=== PATIENT | female | born 1990 | race Two or more races ===

== ENCOUNTER 2016-06-29 17:09 | Emergency (ER) | payer SELFPAY ==
[~2016-06-29] VITALS: Ht 165.1 cm; Wt 63.5 kg
[~2016-06-29 17:09] MED LIST: AZIT250T PO; FLUT9.9S NS
[2016-06-29 17:56] VITALS: BP 118/73
[2016-06-29 18:24] LABS: OBC FLU VALID
[2016-06-29] MEDS ORDERED: AMOX500C PO (18:32)
--- NOTE | 2016-06-29 18:32 | PHYS DOC ---
Past Medical History Past Medical History: No Pertinent History Past Surgical History: Cholecystectomy Alcohol Use: None Drug Use: None Adult General Chief Complaint Chief Complaint: COUGH HPI HPI Patient is a 25 year old female presents emergency department stating that she' s had a cough congestion for the last 2 weeks. She states initially she was running fevers although apparently she has not been having any. She does state that she coughs enough that she felt like to vomit. Patient denies vomiting diarrhea. Patient denies taking any medication [id number]. Review of Systems Review of Systems Constitutional: Denies fever or chills [] Eyes: Denies change in visual acuity, redness, or eye pain [] HENT: nasal congestion and sore throat [] Respiratory: cough denies shortness of breath [] Cardiovascular: No additional information not addressed in HPI [] GI: Denies abdominal pain, nausea, vomiting, bloody stools or diarrhea [] : Denies dysuria or hematuria [] Musculoskeletal: Denies back pain or joint pain [] Integument: Denies rash or skin lesions [] Neurologic: Denies headache, focal weakness or sensory changes [] Allergies Allergies Allergies Coded Allergies Type Severity Reaction Last Updated Verified No Known Drug Allergies 05/30/15 No Physical Exam Physical Exam Constitutional: Well developed, well nourished, no acute distress, non-toxic appearance. [] HENT: Normocephalic, atraumatic, bilateral external ears normal, oropharynx moist, no oral exudates, nose normal. Bilateral tympanic membranes appear to be normal. Patient with postnasal drip that appears to be clear. No erythematous or exudate noted. Eyes: PERRLA, EOMI, conjunctiva normal, no discharge. [] Neck: Normal range of motion, no tenderness, supple, no stridor. [] Cardiovascular:Heart rate regular rhythm, no murmur [] Lungs & Thorax: Bilateral breath sounds clear to auscultation [] Skin: Warm, dry, no erythema, no rash. [] Back: No tenderness Extremities: No tenderness, no cyanosis, no clubbing, ROM intact, no edema. [] Neurologic: Alert and oriented X 3, normal motor function, normal sensory function, no focal deficits noted. [] Psychologic: Affect normal, judgement normal, mood normal. [] Current Patient Data Vital Signs Vital Signs Date Time Temp Pulse Resp B/P Pulse Ox O2 Delivery O2 Flow Rate FiO2 06/29/16 17:56 98.4 88 18 98 Room Air 98.4 Lab Values Laboratory Tests Test 06/29/16 17:20 Influenza Type A Antigen Negative (NEGATIVE) Influenza Type B Antigen Negative (NEGATIVE) EKG EKG [] Radiology/Procedures Radiology/Procedures [] Course & Med Decision Making Course & Med Decision Making Pertinent Labs and Imaging studies reviewed. (See chart for details) Rapid strep and influenza was negative. Patient will be treated for an upper respiratory infection. She'll be placed on amoxicillin 1 tablet twice day for the next 10 days recommended cough medication [id number]. Patient agrees with discharge instructions treatment regimens and follow-up recommendations. Signs and symptoms to return back to emergency department as been provided. [] Dragon Disclaimer Dragon Disclaimer This electronic medical record was generated, in whole or in part, using a voice recognition dictation system. Departure Departure Impression: Primary Impression: URI (upper respiratory infection) Disposition: HOME, SELF-CARE Condition: STABLE Referrals: NO PCP (PCP) Patient Instructions: Upper Respiratory Infection, Adult, [id number] Additional Instructions: Activity as tolerated. Tylenol or ibuprofen for fever chills or generalized body aches and discomfort. Medication as prescribed. Drink plenty of fluids. Rokc-esw-[id number] cough medications such as Mucinex DM. Follow-up primary care physician next 3-5 days. Return back to emergency prior signs symptoms of become worse. Scripts Amoxicillin 500 Mg Capsule1 Cap PO BID #20 CAP Prov:YENNY BURNS NP 06/29/16 YENNY BURNS NP Jun 29, 2016 18:32
[2016-06-30 07:02] LABS: NEGATIVE OBC STREP NEG; POSITIVE OBC STREP POS
== END 2016-06-29 18:42 | disposition home or self-care (01) ==
LOC: ER 17:09
DX: J06.9 Acute upper respiratory infection, unspecified (principal)
CPT/HCPCS: 87070; 87804; 87880; 99284

== ENCOUNTER 2018-11-28 22:24 | Emergency (ER) | payer SELFPAY ==
[~2018-11-28] VITALS: Ht 165.1 cm; Wt 63.5 kg
[~2018-11-28 22:24] MED LIST changes: +AMOX500C PO
[2018-11-28 22:50] VITALS: BP 128/66
--- NOTE | 2018-11-28 23:31 | PHYS DOC ---
Past Medical History Past Medical History: No Pertinent History Past Surgical History: Cholecystectomy Alcohol Use: None Drug Use: Marijuana Adult General Chief Complaint Chief Complaint: VAGINAL PROBLEM HPI HPI Patient is a 27 year old female who was presented to ER today for evaluation of painful vaginal rash for about 2 days. Patient denies any fever, no pelvic pain, no abdominal pain. Patient is sexually active. Review of Systems Review of Systems Constitutional: Denies fever or chills [] Eyes: Denies change in visual acuity, redness, or eye pain [] HENT: Denies nasal congestion or sore throat [] Respiratory: Denies cough or shortness of breath [] Cardiovascular: No additional information not addressed in HPI [] GI: Denies abdominal pain, nausea, vomiting, bloody stools or diarrhea [] : painful vaginal rash, pain with urination. Musculoskeletal: Denies back pain or joint pain [] Integument: Denies rash or skin lesions [] Neurologic: Denies headache, focal weakness or sensory changes [] Endocrine: Denies polyuria or polydipsia [] All other systems were reviewed and found to be within normal limits, except as documented in this note. Current Medications Current Medications Current Medications Medications (Trade) Dose Ordered Sig/Carmela Start Time Stop Time Status Last Admin Dose Admin Acyclovir (Zovirax) 400 mg 1X ONCE 11/29/18 00:00 11/29/18 00:01 DC 11/28/18 23:48 400 MG Azithromycin (Zithromax) 1,000 mg 1X ONCE 11/29/18 00:00 11/29/18 00:01 DC 11/28/18 23:48 1,000 MG Ceftriaxone Sodium (Rocephin Im) 250 mg 1X ONCE 11/29/18 00:00 11/29/18 00:01 DC 11/28/18 23:47 250 MG Fluconazole (Diflucan) 150 mg 1X ONCE 11/29/18 00:00 11/29/18 00:01 DC 11/28/18 23:47 150 MG Allergies Allergies Allergies Coded Allergies Type Severity Reaction Last Updated Verified No Known Drug Allergies 05/30/15 No Physical Exam Physical Exam Constitutional: Well developed, well nourished, no acute distress, non-toxic appearance. [] HENT: Normocephalic, atraumatic, bilateral external ears normal, oropharynx moist, no oral exudates, nose normal. [] Eyes: PERRLA, EOMI, conjunctiva normal, no discharge. [] Neck: Normal range of motion, no tenderness, supple, no stridor. [] Cardiovascular:Heart rate regular rhythm, no murmur [] Lungs & Thorax: Bilateral breath sounds clear to auscultation [] Abdomen: Bowel sounds normal, soft, no tenderness, no masses, no pulsatile masses. [] Skin: Warm, dry, no erythema, no rash. [] Back: No tenderness, no CVA tenderness. [] Extremities: No tenderness, no cyanosis, no clubbing, ROM intact, no edema. [] Neurologic: Alert and oriented X 3, normal motor function, normal sensory function, no focal deficits noted. [] Psychologic: Affect normal, judgement normal, mood normal. Pelvic exam: with RN present, there area numerous crusted herpetic lesions on external vaginal area. cloudy vaginal discharge, no adnexa tenderness. Current Patient Data Vital Signs Vital Signs Date Time Temp Pulse Resp B/P (MAP) Pulse Ox O2 Delivery O2 Flow Rate FiO2 11/28/18 22:50 98.6 87 16 128/66 (86) 98 Room Air 98.6 Lab Values Laboratory Tests Test 11/28/18 23:45 11/28/18 23:46 Urine Collection Type Unknown Urine Color Yellow Urine Clarity Cloudy Urine pH 6.5 Urine Specific Rewey 1.015 Urine Protein Negative mg/dL (NEG-TRACE) Urine Glucose (UA) Negative mg/dL (NEG) Urine Ketones (Stick) Negative mg/dL (NEG) Urine Blood Moderate (NEG) Urine Nitrite Negative (NEG) Urine Bilirubin Negative (NEG) Urine Urobilinogen Dipstick 1.0 mg/dL (0.2 mg/dL) Urine Leukocyte Esterase Large (NEG) Urine RBC Occ /HPF (0-2) Urine WBC 5-10 /HPF (0-4) Urine Squamous Epithelial Cells Many /LPF Urine Bacteria Moderate /HPF (0-FEW) Urine Mucus Mod /LPF POC Urine HCG, Qualitative Hcg negative (Negative) Microbiology 11/28/18 Wet Prep - Final, Complete EKG EKG [] Radiology/Procedures Radiology/Procedures [] Course & Med Decision Making Course & Med Decision Making Pertinent Labs and Imaging studies reviewed. (See chart for details) [] Dragon Disclaimer Dragon Disclaimer This electronic medical record was generated, in whole or in part, using a voice recognition dictation system. Departure Departure Impression: Primary Impression: Herpes genitalis in women Disposition: HOME, SELF-CARE Condition: STABLE Referrals: NO PCP (PCP) follow up with your doctor on Sunday for reevaluation. Patient Instructions: Genital Herpes Scripts Tramadol Hcl (TRAMADOL HCL) 50 Mg Tablet 50 MG PO Q6HRS PRN for PAIN, #15 TAB Prov: ISMA STEVENSON DO 11/29/18 Acyclovir (ACYCLOVIR) 400 Mg Tablet 1 TAB PO TID for 10 Days, #30 TAB Prov: ISMA STEVENSON DO 11/29/18 ISMA STEVENSON DO Nov 28, 2018 23:31
[2018-11-28 23:50] LABS: BILIRUBIN,URINE NEGATIVE (NEG); CLARITY,URINE CLOUDY; COLOR,URINE YELLOW; NITRITE,URINE NEGATIVE (NEG); PH,URINE 6.5; PROTEIN,URINE NEGATIVE (NEG-TRACE)
[2018-11-29] MEDS ORDERED: FLUCONAZOLE 100 MG TABLET. PO ONE
[2018-11-29] MEDS ORDERED: AZITHROMYCIN 250 MG TABLET. PO ONE
[2018-11-29] MEDS ORDERED: cefTRIAXone IM 250 MG VIAL IM ONE
[2018-11-29] MEDS ORDERED: ACYCLOVIR 200 MG CAPSULE. PO ONE
[2018-11-29 00:06] LABS: BACTERIA,URINE MODERATE /HPF (0-FEW); RBC,URINE OCC /HPF (0-2)
[2018-11-29] MEDS ORDERED: TRAM50TA PO (00:08)
[2018-11-29] MEDS ORDERED: ACYC400T PO (00:08)
[2018-11-29 00:09] LABS: SQUAMOUS EPITHELIAL CELL,UR MANY /LPF
== END 2018-11-29 00:20 | disposition home or self-care (01) ==
LOC: ER 22:24
DX: B00.9 Herpesviral infection, unspecified (principal); R30.0 Dysuria; Z90.49 Acquired absence of other specified parts of digestive tract
CPT/HCPCS: 81001; 81025; 87086; 87491; 87591; 96372; 99284; J0696; Q0111; Q0144

== ENCOUNTER 2019-04-08 20:15 | Emergency (ER) | payer SELFPAY ==
[~2019-04-08] VITALS: Ht 165.1 cm; Wt 63.5 kg
[~2019-04-08 20:15] MED LIST changes: +ACYC400T PO; +TRAM50TA PO
[2019-04-08] MEDS ORDERED: IV NORMAL SALINE 1000ML BAG 1,000 ML IV SCH (20:29)
[2019-04-08 20:43] LABS: BILIRUBIN,URINE NEGATIVE (NEG); CLARITY,URINE CLEAR; COLOR,URINE YELLOW; NITRITE,URINE NEGATIVE (NEG); PH,URINE 6.5; PROTEIN,URINE NEGATIVE (NEG-TRACE); UROBILINOGEN,URINE 0.2 mg/dL (0.2 mg/dL)
[2019-04-08 20:49] LABS: BACTERIA,URINE MODERATE /HPF (0-FEW); RBC,URINE OCC /HPF (0-2); SQUAMOUS EPITHELIAL CELL,UR MANY /LPF
--- NOTE | 2019-04-08 21:14 | PHYS DOC ---
Past Medical History Past Medical History: No Pertinent History Past Surgical History: Cholecystectomy Alcohol Use: Occasionally Drug Use: Marijuana Adult General Chief Complaint Chief Complaint: ABDOMINAL PAIN IN HPI HPI 28-year-old female presents to the emergency department with complaints of abdominal pain. Patient's last menstrual period was 02/05/2019. Patient had positive urine test. She was seen at outpatient center today with complaints of abdominal cramping. She denies any vaginal discharge or vaginal bleeding. She states that she had an ultrasound that showed no evidence of intrauterine and could not rule out ectopic . Subsequent patient was sent to this facility for further evaluation. Review of Systems Review of Systems Constitutional: Denies fever or chills [] Eyes: Denies change in visual acuity, redness, or eye pain [] HENT: Denies nasal congestion or sore throat [] Respiratory: Denies cough or shortness of breath [] Cardiovascular: No additional information not addressed in HPI [] GI: + abdominal pain, no nausea, vomiting, bloody stools or diarrhea [] : Denies dysuria or hematuria, no vaginal bleeding [] Musculoskeletal: Denies back pain or joint pain [] Integument: Denies rash or skin lesions [] Neurologic: Denies headache, focal weakness or sensory changes [] All other systems were reviewed and found to be within normal limits, except as documented in this note. Current Medications Current Medications Current Medications Medications (Trade) Dose Ordered Sig/[facility] Start Time Stop Time Status Last Admin Dose Admin Sodium Chloride 1,000 ml @ 1,000 mls/hr Q1H 04/08/19 20:29 04/08/19 21:28 DC 04/08/19 21:03 1,000 MLS/HR Allergies Allergies Allergies Coded Allergies Type Severity Reaction Last Updated Verified No Known Drug Allergies 05/30/15 No Physical Exam Physical Exam Constitutional: Well developed, well nourished, no acute distress, non-toxic appearance. [] HENT: Normocephalic, atraumatic, bilateral external ears normal, oropharynx moist, no oral exudates, nose normal. [] Eyes: PERRLA, EOMI, conjunctiva normal, no discharge. [] Cardiovascular:Heart rate regular rhythm, no murmur [] Lungs & Thorax: Bilateral breath sounds clear to auscultation [] Abdomen: Bowel sounds normal, soft, no tenderness, no masses, no pulsatile masses. [] Skin: Warm, dry, no erythema, no rash. [] Back: No tenderness, no CVA tenderness. [] Extremities: No tenderness, no edema. [] Neurologic: Alert and oriented X 3, no focal deficits noted. [] Psychologic: Affect normal, judgement normal, mood normal. [] Current Patient Data Vital Signs Vital Signs Date Time Temp Pulse Resp B/P (MAP) Pulse Ox O2 Delivery O2 Flow Rate FiO2 04/08/19 21:40 84 18 126/74 (91) 100 Room Air 04/08/19 20:23 98.9 98.9 Lab Values Laboratory Tests Test 04/08/19 20:30 04/08/19 20:34 04/08/19 20:45 Urine Collection Type Unknown Urine Color Yellow Urine Clarity Clear Urine pH 6.5 Urine Specific Lucinda 1.015 Urine Protein Negative mg/dL (NEG-TRACE) Urine Glucose (UA) Negative mg/dL (NEG) Urine Ketones (Stick) Negative mg/dL (NEG) Urine Blood Small (NEG) Urine Nitrite Negative (NEG) Urine Bilirubin Negative (NEG) Urine Urobilinogen Dipstick 0.2 mg/dL (0.2 mg/dL) Urine Leukocyte Esterase Trace (NEG) Urine RBC Occ /HPF (0-2) Urine WBC 5-10 /HPF (0-4) Urine Squamous Epithelial Cells Many /LPF Urine Bacteria Moderate /HPF (0-FEW) Urine Mucus Marked /LPF POC Urine HCG, Qualitative Hcg positive (Negative) White Blood Count 7.1 x10^3/uL (4.0-11.0) Red Blood Count 4.14 x10^6/uL (3.50-5.40) Hemoglobin 12.9 g/dL (12.0-15.5) Hematocrit 37.7 % (36.0-47.0) Mean Corpuscular Volume 91 fL (79-100) Mean Corpuscular Hemoglobin 31 pg (25-35) Mean Corpuscular Hemoglobin Concent 34 g/dL (31-37) Red Cell Distribution Width 13.3 % (11.5-14.5) Platelet Count 230 x10^3/uL (140-400) Neutrophils (%) (Auto) 55 % (31-73) Lymphocytes (%) (Auto) 35 % (24-48) Monocytes (%) (Auto) 8 % (0-9) Eosinophils (%) (Auto) 1 % (0-3) Basophils (%) (Auto) 1 % (0-3) Neutrophils # (Auto) 3.9 x10^3/uL (1.8-7.7) Lymphocytes # (Auto) 2.5 x10^3/uL (1.0-4.8) Monocytes # (Auto) 0.6 x10^3/uL (0.0-1.1) Eosinophils # (Auto) 0.1 x10^3/uL (0.0-0.7) Basophils # (Auto) 0.0 x10^3/uL (0.0-0.2) Prothrombin Time 13.2 SEC (11.7-14.0) Prothrombin Time INR 1.0 (0.8-1.1) Maternal Serum HCG Beta Subunit 3956 mIU/mL (0-5) H Sodium Level 136 mmol/L (136-145) Potassium Level 3.4 mmol/L (3.5-5.1) L Chloride Level 102 mmol/L (98-107) Carbon Dioxide Level 26 mmol/L (21-32) Anion Gap 8 (6-14) Blood Urea Nitrogen 10 mg/dL (7-20) Creatinine 0.8 mg/dL (0.6-1.0) Estimated GFR (Cockcroft-Gault) 86.7 BUN/Creatinine Ratio 13 (6-20) Glucose Level 89 mg/dL (70-99) Calcium Level 8.8 mg/dL (8.5-10.1) Total Bilirubin 0.2 mg/dL (0.2-1.0) Aspartate Amino Transferase (AST) 8 U/L (15-37) L Alanine Aminotransferase (ALT) 19 U/L (14-59) Alkaline Phosphatase 42 U/L (46-116) L Total Protein 7.1 g/dL (6.4-8.2) Albumin 3.9 g/dL (3.4-5.0) Albumin/Globulin Ratio 1.2 (1.0-1.7) Laboratory Tests 04/08/19 20:45 Laboratory Tests 04/08/19 20:45 EKG EKG [] Radiology/Procedures Radiology/Procedures [facility] [address] [place] [address] IMAGING REPORT Signed PATIENT: ZARI BOTELLOOUNT: [id number] : 1990 LOCATION: ER AGE: 28 SEX: F EXAM STATUS: REG ER ORD. PHYSICIAN: ASIM JOHNSON MD REASON: concern for ectopic PROCEDURE: OB < 14 WKS Exam: Ultrasound OB less than 14 weeks Indication: Concern for ectopic Technique: Real-time grayscale and color Doppler images of the pelvis were obtained by the department environmental conservation officer. Comparisons: None FINDINGS: Uterus measures 9.2 x 6.2 x 5.9 cm. Within the endometrium there is a gestational sac with internal yolk sac. No pole is identified. Right ovary measures 3.3 x 2.4 x 2.4 cm Left ovary measures 2.3 x 1.6 x 1.5 cm. There is a small amount of free fluid in the cul-de-sac. IMPRESSION: Gestational sac with internal yolk sac identified in the endometrium. No pole is identified. Findings likely relate to either an early IUP or failed IUP. Recommend correlation with serial beta HCg measurements and short-term follow-up ultrasound. Electronically signed by: Cuate Canseco MD (04/08/2019 10:40 PM) [facility] DICTATED and SIGNED BY: CUATE CANSECO MD DATE: 04/08/192239 [] Course & Med Decision Making Course & Med Decision Making Pertinent Labs and Imaging studies reviewed. (See chart for details) []28-year-old female presents to the emergency department with complaints of abdominal pain. Patient's last menstrual period was 02/05/2019. Patient had positive urine test. She was seen at outpatient center today with complaints of abdominal cramping. She denies any vaginal discharge or vaginal bleeding. She states that she had an ultrasound that showed no evidence of intra uterine and could not rule out ectopic . Subsequent patient was sent to this facility for further evaluation. Labs reviewed Dragon Disclaimer Dragon Disclaimer This electronic medical record was generated, in whole or in part, using a voice recognition dictation system. Departure Departure Impression: Primary Impression: Abdominal pain during Disposition: 01 HOME, SELF-CARE Condition: STABLE Referrals: NO PCP (PCP) Patient Instructions: Abdominal Pain During , [id number] Additional Instructions: Recommend follow up with PCP 3 - 5 days Return to the ER with worsening symptoms, intractable pain, fever, altered mental status Tylenol/Motrin as needed for pain US with evidence of yolk sac, no CRL appreciated - beta HCG 3900, recommend f ollow up with primary OB regarding US and repeat HCG Problem Qualifiers Primary Impression: Abdominal pain during Trimester: first trimester Qualified Codes: O26.891 - Other specified related conditions, first trimester; R10.9 - Unspecified abdominal pain ASIM JOHNSON MD Apr 08, 2019 21:14
[2019-04-08 21:17] LABS: BASO % 1 % (0-3); EOS # 0.1 x10^3/uL (0.0-0.7); EOS % 1 % (0-3); HEMATOCRIT 37.7 % (36.0-47.0); HEMOGLOBIN 12.9 g/dL (12.0-15.5); LYMPH # 2.5 x10^3/uL (1.0-4.8); LYMPH % 35 % (24-48); MEAN CORPUSCULAR HEMOGLOBIN 31 pg (25-35); MEAN CORPUSCULAR HGB CONC 34 g/dL (31-37); MEAN CORPUSCULAR VOLUME 91 fL (79-100); MONO # 0.6 x10^3/uL (0.0-1.1); MONO % 8 % (0-9); NEUT # 3.9 x10^3/uL (1.8-7.7); NEUT % 55 % (31-73); PLATELET COUNT 230 x10^3/uL (140-400); RED BLOOD COUNT 4.14 x10^6/uL (3.50-5.40); RED CELL DISTRIBUTION WIDTH 13.3 % (11.5-14.5); WHITE BLOOD COUNT 7.1 x10^3/uL (4.0-11.0)
[2019-04-08 21:24] LABS: CALCIUM 8.8 mg/dL (8.5-10.1); CREATININE 0.8 mg/dL (0.6-1.0); GFR 86.7; POTASSIUM 3.4 mmol/L (3.5-5.1)
[2019-04-08 21:30] LABS: ALBUMIN 3.9 g/dL (3.4-5.0); ALBUMIN/GLOBULIN RATIO 1.2 (1.0-1.7); TOTAL BILIRUBIN 0.2 mg/dL (0.2-1.0); TOTAL PROTEIN 7.1 g/dL (6.4-8.2)
[2019-04-08 21:37] LABS: PROTHROMBIN TIME PATIENT 13.2 SEC (11.7-14.0)
--- NOTE | 2019-04-08 22:43 | RAD ---
Exam: Ultrasound OB less than 14 weeks Indication: Concern for ectopic Technique: Real-time grayscale and color Doppler images of the pelvis were obtained by the department tube balancer. Comparisons: None FINDINGS: Uterus measures 9.2 x 6.2 x 5.9 cm. Within the endometrium there is a gestational sac with internal yolk sac. No pole is identified. Right ovary measures 3.3 x 2.4 x 2.4 cm Left ovary measures 2.3 x 1.6 x 1.5 cm. There is a small amount of free fluid in the cul-de-sac. IMPRESSION: Gestational sac with internal yolk sac identified in the endometrium. No pole is identified. Findings likely relate to either an early IUP or failed IUP. Recommend correlation with serial beta HCg measurements and short-term follow-up ultrasound. Electronically signed by: Angelika Cortez MD (04/08/2019 10:40 PM) [facility]
[2019-04-08 23:00] VITALS: BP 123/64
== END 2019-04-08 23:00 | disposition home or self-care (01) ==
LOC: ER 20:15
DX: O26.891 Other specified pregnancy related conditions, first trimester (principal); R10.9 Unspecified abdominal pain; Z3A.00 Weeks of gestation of pregnancy not specified; Z90.49 Acquired absence of other specified parts of digestive tract; F12.90 Cannabis use, unspecified, uncomplicated
CPT/HCPCS: 36415; 76801; 80053; 81001; 81025; 84702; 85025; 85610; 87086; 87186; 99285; J7030